=== PATIENT | female | born 1955 | race Caucasian/White ===

== ENCOUNTER 2018-11-06 11:36 | Observation (INO) | payer BC, OTHER ==
[~2018-11-06] VITALS: Ht 154.9 cm; Wt 42.8 kg
[2018-11-06] MEDS ORDERED: KETOROLAC 15 MG INJ IV STA (11:45)
--- NOTE | 2018-11-06 12:04 | ERD ---
ER Documentation Chief Complaint Chief Complaint HPI 63-year-old woman brought in by EMS from orthopedic clinic after experiencing sh ahmet left-sided chest pain radiating down to the left upper extremity while in the office. Patient also experienced shortness of breath and dizziness with the sharp chest pain and had paresthesias to the left hand. 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 She denies cough, no recent fevers or chills, no loss of consciousness, no headache or blurry vision. Patient was given aspirin and nitroglycerin at the scene and transported here without further complications ROS All systems reviewed and are negative except as per history of present illness. Medications Home Meds Reported Medications Estradiol (Estradiol) 1 Each Patch.tdwk, 1 PATCH TOP WEEKLY 11/06/18 Allergies Allergies: Coded Allergies: amoxicillin (Verified Adverse Reaction, Mild, RASH, 11/06/18) PMhx/Soc History of Surgery: Yes () Anesthesia Reaction: No Hx Neurological Disorder: No Hx Respiratory Disorders: No Hx Cardiac Disorders: No Hx Psychiatric Problems: No Hx Miscellaneous Medical Probl: No (NONE) Hx Alcohol Use: No Hx Substance Use: No Hx Tobacco Use: No Physical Exam Vitals Vital Signs Date Temp Pulse Resp B/P (MAP) Pulse Ox O2 O2 Flow FiO2 Time Delivery Rate 11/06/18 98.1 67 19 126/81 98 11:36 (96) Physical Exam GENERAL: Well-developed, well-nourished, well-hydrated, in no apparent distress, looks nontoxic in appearance NEURO: Alert and oriented 3, cranial nerves II through XII intact bilaterally, pupils equal round reactive to light, no focal deficits or facial asymmetry, sensation intact distally Strength 5/5 in upper and lower extremities bilaterally CARDIAC: Regular rate and rhythm, no murmurs rubs or gallops LUNGS: Clear bilaterally no wheezing crackles or stridor SKIN: Warm and dry to touch, no abrasions, contusions, or hematomas, no lacerations, no ecchymosis, no target lesions, and without ulcers EXTREMITIES: No clubbing cyanosis or edema, calves are bilaterally symmetrical, no Homans sign, no popliteal cord sign. Distal pulses equal and bilateral PSYCH: Normal affect without agitation or irritability Result Diagram: 11/06/18 1153 11/06/18 1153 Results 24 hrs Laboratory Tests Test 11/06/18 11:53 White Blood Count 7.6 10^3/ul Red Blood Count 4.27 10^6/ul Hemoglobin 13.6 g/dl Hematocrit 40.2 % Mean Corpuscular Volume 94.1 fl Mean Corpuscular Hemoglobin 31.9 pg Mean Corpuscular Hemoglobin Concent 33.8 g/dl Red Cell Distribution Width 11.9 % Platelet Count 288 10^3/UL Mean Platelet Volume 9.5 fl Immature Granulocytes % 0.300 % Neutrophils % 65.7 % Lymphocytes % 28.0 % Monocytes % 5.4 % Eosinophils % 0.1 % Basophils % 0.5 % Nucleated Red Blood Cells % 0.0 /100WBC Immature Granulocytes # 0.020 10^3/ul Neutrophils # 5.0 10^3/ul Lymphocytes # 2.1 10^3/ul Monocytes # 0.4 10^3/ul Eosinophils # 0.0 10^3/ul Basophils # 0.0 10^3/ul Nucleated Red Blood Cells # 0.0 10^3/ul Sodium Level 140 mmol/L Potassium Level 3.9 mmol/L Chloride Level 107 mmol/L Carbon Dioxide Level 21 mmol/L Anion Gap 12 Blood Urea Nitrogen 16 mg/dl Creatinine 0.68 mg/dl Est Glomerular Filtrat Rate mL/min > 60 mL/min Glucose Level 112 mg/dl Calcium Level 9.4 mg/dl Total Bilirubin 0.6 mg/dl Direct Bilirubin 0.00 mg/dl Indirect Bilirubin 0.6 mg/dl Aspartate Amino Transf (AST/SGOT) 28 IU/L Alanine Aminotransferase (ALT/SGPT) 22 IU/L Alkaline Phosphatase 38 IU/L Troponin I < 0.012 ng/ml B-Type Natriuretic Peptide 73 PG/ML Total Protein 7.9 g/dl Albumin 4.4 g/dl Globulin 3.50 g/dl Albumin/Globulin Ratio 1.25 Lipase 144 U/L Current Medications Medications Dose Sig/Ade Start Time Status Last (Trade) Ordered Route PRN Stop Time Admin Dose Reason Admin Ketorolac 15 mg ONCE STAT 11/06/18 DC 11/06/18 Tromethamine IV 11:45 12:11 (Toradol) 11/06/18 11:47 Procedures/MDM IV line was established patient was placed on equipment monitor phototypesetting rhythm strip revealed a sinus rhythm at about 70 bpm with upright P and T waves. Patient was afebrile EKG performed, read by me: 72 bpm, normal sinus rhythm, normal axis, no acute ST segment changes, narrow QRS complex, with good R-wave progression in precordial leads. Chest X-ray 1V Interpreted by me: Soft Tissue: No acute abnormalities Bones: No acute abnormalities Mediastinum/Cardiac Silhouette/Lungs: No acute abnormalities Patient was already treated with aspirin and nitroglycerin at the scene and did experience some improvement in chest pain. For continued discomfort I did administer Toradol 50 mg IV x1. CBC and electrolytes are normal, liver function tests were normal, troponin was negative, BNP was low Patient will be admitted to telemetry setting for continued medical management and cardiology consultation Departure Diagnosis: Primary Impression: Chest pain Chest pain type: unspecified Qualified Codes: R07.9 - Chest pain, unspecified Condition: MIRA Sawant MD Nov 06, 2018 12:04
[2018-11-06] MEDS ORDERED: ESTR1PAT76 TOP (12:23)
[2018-11-06 14:36] VITALS: BP 113/58; PULSE 62; RESP 18
[2018-11-06 15:12] VITALS: BP 120/75; PULSE 78; RESP 18
[2018-11-06 15:31] VITALS: Ht 154.9 cm; Wt 42.8 kg
[2018-11-06 20:30] VITALS: BP 115/55; PULSE 66; RESP 20
[2018-11-06] MEDS ORDERED: DIPHENHYDRAMINE 25 MG CAP PO PRN (21:00)
[2018-11-06] MEDS ORDERED: DEXTROSE 5%-0.9% NACL 1,000 ML IV SCH ×2 (21:00→22:36)
[2018-11-06] MEDS ORDERED: CYANOCOBALAMIN 1000 MCG INJ IM ONE (21:00)
[2018-11-06] MEDS ORDERED: NITROGLYCERIN (SL) 0.4 MG TAB SL PRN (21:00)
[2018-11-06] MEDS ORDERED: ALPRAZOLAM 0.25 MG TAB PO PRN (21:30)
--- NOTE | 2018-11-06 21:41 | HP ---
Date/Time of Note Date/Time of Note DATE: 11/06/18 TIME: 21:21 Assessment/Plan VTE Prophylaxis SCD applied (from Nsg): No SCD contraindicated: low risk/ambulating Pharmacological prophylaxis: NA/contraindicated Pharm contraindication: low risk/ambulating Lines/Catheters IV Catheter Type (from Nrsg): Saline [employer] Central line still needed: No Urinary Cath still in place: No Assessment/Plan Assessment/Plan 1. atypical angina? 2. Gerd spasm? 3. h/o hyperTG/ arrythemia/ past silent VA? 4. anemia 5. anxiety-depression/ wt loss 5. stress exhaustion--vasovaga ---observ admit to tele bed ---ivf ---vits b12, b6, d ---inh ---protonix bid ---serial ekg/ triponin/ cpk-mb/ bnp ---2d echo with doppler ---cards ref Result Diagram: 11/06/18 1153 11/06/18 1153 Results 24hrs Laboratory Tests Test 11/06/18 11:53 11/06/18 18:02 White Blood Count 7.6 Red Blood Count 4.27 Hemoglobin 13.6 Hematocrit 40.2 Mean Corpuscular Volume 94.1 Mean Corpuscular Hemoglobin 31.9 Mean Corpuscular Hemoglobin Concent 33.8 Red Cell Distribution Width 11.9 Platelet Count 288 Mean Platelet Volume 9.5 Immature Granulocytes % 0.300 Neutrophils % 65.7 Lymphocytes % 28.0 Monocytes % 5.4 Eosinophils % 0.1 Basophils % 0.5 Nucleated Red Blood Cells % 0.0 Immature Granulocytes # 0.020 Neutrophils # 5.0 Lymphocytes # 2.1 Monocytes # 0.4 Eosinophils # 0.0 Basophils # 0.0 Nucleated Red Blood Cells # 0.0 Sodium Level 140 Potassium Level 3.9 Chloride Level 107 Carbon Dioxide Level 21 Anion Gap 12 Blood Urea Nitrogen 16 Creatinine 0.68 Est Glomerular Filtrat Rate mL/min > 60 Glucose Level 112 Calcium Level 9.4 Total Bilirubin 0.6 Direct Bilirubin 0.00 Indirect Bilirubin 0.6 Aspartate Amino Transf (AST/SGOT) 28 Alanine Aminotransferase (ALT/SGPT) 22 Alkaline Phosphatase 38 L Troponin I < 0.012 < 0.012 B-Type Natriuretic Peptide 73 Total Protein 7.9 Albumin 4.4 Globulin 3.50 H Albumin/Globulin Ratio 1.25 Lipase 144 HPI/ROS Admit Date/Time Admit Date/Time Nov 06, 2018 at 13:00 Hx of Present Illness 63 yo viet[place] woman, was at a doctor's appnt today morning, sudden attack of left chest squeezing pain with radiating down the left arm, lasting for a secs, no loc, yes sob, no palpitation, slight sudden sweating, asked to come to [facility] er for check up ROS no f/c/n/v/dysuria/bm change. 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 awaiting for kidney transpant for a few months, Medications multi vit, inh, asa Coded Allergies: amoxicillin (Verified Adverse Reaction, Mild, RASH, 11/06/18) Past Surgical History colonoscopy, ugi endoscopy Family History Significant Family History: heart disease, hypertension Social History Alcohol Use: rarely Smoking Status: Never smoker Drug Use: none Exam/Review of Systems Vital Signs Vitals Vital Signs Date Temp Pulse Resp B/P (MAP) Pulse Ox O2 O2 Flow FiO2 Time Delivery Rate 11/06/18 97.5 66 20 115/55 98 Room Air 20:30 (75) Exam Exam a&o x4, perrla, eomi, nl ears/ nose/ throat, slight bronch wheez+, rr syst m+, abd--slight tender epigastic region, no mass, nd, c/o slight tender palp on low LS spine musc spasm/ tense+, cn 2-12, sensory, motor strength grossly intact, pulses +1 LUIS MIGUEL Hou MD Nov 06, 2018 21:31
[2018-11-06] MEDS: TIOTROPIUM 18 MCG CAPSULE INHA DEV INH SCH (22:22)
[2018-11-07 00:21] VITALS: BP 104/52; PULSE 58; RESP 18
[2018-11-07 04:30] VITALS: BP 101/53; PULSE 70; RESP 20
[2018-11-07] MEDS: PANTOPRAZOLE (EC) 40 MG TAB PO SCH ×2 (05:09→17:56)
[2018-11-07 07:08] VITALS: BP 101/58; PULSE 57; RESP 18
[2018-11-07] MEDS: ALBUTEROL HFA 8 GM INHALER INH SCH ×2 (08:36→14:10)
[2018-11-07] MEDS ORDERED: CHOLECALCIFEROL 2,000 UNIT CAP PO SCH (09:00)
[2018-11-07] MEDS ORDERED: MULTIVITAMINS/IRON (PO SYG) PO SCH (09:00)
[2018-11-07] MEDS ORDERED: FOLIC ACID 1 MG TAB PO SCH (09:00)
[2018-11-07] MEDS: TIOTROPIUM 18 MCG CAPSULE INHA DEV INH SCH (09:20)
[2018-11-07 11:00] VITALS: BP 110/59; PULSE 80; RESP 18
[2018-11-07 15:05] VITALS: BP 106/51; PULSE 64; RESP 18
--- NOTE | 2018-11-07 15:23 | CONS ---
Assessment/Plan Assessment/Plan Hospital Course (Demo Recall) 1. chest pain; appears atypical with negative work up including normal florecita angio 2017 Myocardial infarction has been ruled out with serial cardiac enzyme Resume aspirin daily Risk factor modification Echo has been ordered. Awaiting to be done so I can review it Okay for discharge from cardiac standpoint if normal LV function is seen on the echo. Consider outpatient stress test if recurrent pain 2. History of asthma coronary controlled 3. History of dyslipidemia on niacin at home Consider switching to statins if needed 4. History of anxiety currently stable Thank you for his referral. We will continue to follow along with you until Dr. Yeh returns on Friday TOM JUAREZ MD [facility] Consultation Date/Type/Reason Admit Date/Time Nov 06, 2018 at 13:00 Date of Consultation: Nov 07, 2018 Type of Consult Cardiology Reason for Consultation cp Requesting Provider: LUIS MIGUEL AGOSTO MD Date/Time of Note DATE: 11/07/18 TIME: 15:14 Hx of Present Illness Interventional cardiology consultation note Chief complaint: chest pain Reason for consult: chest pain History of present illness: Thank you for this referral. This is a pleasant 53-year-old [place] female with history of anxiety and mild asthma who came to the emergency above complaint. Patient was apparently in her doctor's office yesterday. When she was waiting she complained of chest tightness and pressure. Lasted about 10 minutes. She was referred to the emergency room has been admitted. So far she does not have any more chest pain has been ruled out for myocardial infarction. Patient says she is normally able to walk. She gets short of breath when she walks though. Patient reports to me that 2 years ago she was at [facility] for the same reason. She had a stress test done and it was short of breath and because of that she underwent diagnostic angiography. Per patient report angiography was normal no stent was needed and she has been treated medically since then. Allergies: Amoxicillin Medications were reviewed as per medical reconciliation sheet. She says she takes aspirin and niacin daily Family history: No history of early coronary artery disease Social history: nonsmoker Past medical history: asthma dyslipidemia asthma Review of system: Patient denies all others except for above-mentioned Past Medical History Home Meds Reported Medications Estradiol (Estradiol) 1 Each Patch.tdwk, 1 PATCH TOP WEEKLY [place] 7/26/19 Medications Current Medications Dextrose/Sodium Chloride 1,872 ml @ 80 mls/hr [id number] IV Last administered on 11/06/18at 22:45; Admin Dose 80 MLS/HR; Start 11/06/18 at 22:36; Stop 11/07/18 at 22:00 Diphenhydramine HCl (Benadryl) 25 mg HS PRN PO insomnia; Start 11/06/18 at 21:00 Pantoprazole (Protonix Tab) 40 mg BID@06,18 PO Last administered on 11/07/18at 05:09; Admin Dose 40 MG; Start 11/07/18 at 06:00 Albuterol (Ventolin Hfa) 2 puff Q6HWA RESP THERAPY INH Last administered on 11/07/18 14:10; Admin Dose 2 PUFF; Start 11/07/18 at 08:00 Tiotropium Tyler (Spiriva) 1 inh DAILY INH Last administered on 11/07/18 09:20; Admin Dose 1 INH; Start 11/06/18 at 21:00 Folic Acid (Folic Acid) 1 mg DAILY PO Last administered on 11/07/18at 08:36; Admin Dose 1 MG; Start 11/07/18 at 09:00 Cholecalciferol (Vitamin D) 2,000 unit DAILY PO Last administered on 11/07/18at 08:37; Admin Dose 2,000 UNIT; Start 11/07/18 at 09:00 Multivitamins/Iron (Poly-Vi-Cesia w/ Iron (Nicu)) 1 ml DAILY PO Last administered on 11/07/18 08:36; Admin Dose 1 ML; Start 11/07/18 at 09:00 Nitroglycerin (Nitroglycerin (Sl Tab) 0.4 Mg) 1 tab Q5M PRN SL ANGINA; Start 11/06/18 at 21:00 Alprazolam (Xanax) 0.25 mg Q8 PRN PO anxiety; Start 11/06/18 at 21:30 Allergies: Coded Allergies: amoxicillin (Verified Adverse Reaction, Mild, RASH, 11/06/18) Social History Alcohol Use: rarely Smoking Status: Never smoker Drug Use: none Exam/Review of Systems Vital Signs Vitals Vital Signs Date Temp Pulse Resp B/P (MAP) Pulse Ox O2 O2 Flow FiO2 Time Delivery Rate 11/07/18 98.0 64 18 106/51 96 15:05 (69) 11/07/18 Room Air 04:30 Intake and Output 11/06/18 11/06/18 11/07/18 1515:00 23:00 07:00 IntakeIntake Total 350 ml 500 ml BalanceBalance 350 ml 500 ml Exam Exam General: no acute distress HEENT: NC/AT. pupils are equal. round. NECK: NO JVD. no stridor. CV: RRR. systolic murmur; no gallop or rubs. PULM: no wheezing or rhonchi. GI: SOFT, NT, ND, no rebound or guarding Extremity: trace B/L LE edema. no clubbing. neuro: awake and alert, OX3. Psych: calm and pleasant rectal: deferred ECG NSR normal Labs Result Diagram: 11/07/1845511/07/186 Results 24hrs Laboratory Tests Test 11/06/18 18:02 11/06/18 23:13 11/07/18 04:56 Troponin I < 0.012 < 0.012 < 0.012 White Blood Count 5.4 # Red Blood Count 3.80 L Hemoglobin 12.2 Hematocrit 36.6 L Mean Corpuscular Volume 96.3 Mean Corpuscular Hemoglobin 32.1 Mean Corpuscular Hemoglobin Concent 33.3 Red Cell Distribution Width 11.9 Platelet Count 252 Mean Platelet Volume 9.5 Immature Granulocytes % 0.200 Neutrophils % 61.2 Lymphocytes % 30.4 Monocytes % 6.7 Eosinophils % 0.9 Basophils % 0.6 Nucleated Red Blood Cells % 0.0 Immature Granulocytes # 0.010 Neutrophils # 3.3 Lymphocytes # 1.6 Monocytes # 0.4 Eosinophils # 0.1 Basophils # 0.0 Nucleated Red Blood Cells # 0.0 Sodium Level 142 Potassium Level 3.9 Chloride Level 113 H Carbon Dioxide Level 25 Anion Gap 4 #L Blood Urea Nitrogen 14 Creatinine 0.61 Est Glomerular Filtrat Rate mL/min > 60 Glucose Level 92 Calcium Level 7.7 L Magnesium Level 2.0 Creatine Kinase 58 Creatine Kinase Index 1.0 Creatinine Kinase MB (Mass) 0.60 B-Type Natriuretic Peptide 111 Cholesterol Level 162 Thyroid Stimulating Hormone (TSH) 2.130 Free Thyroxine 0.95 Medications Medications Current Medications Dextrose/Sodium Chloride 1,872 ml @ 80 mls/hr [id number] IV Last administered on 11/06/18 22:45; Admin Dose 80 MLS/HR; Start 11/06/18 at 22:36; Stop 11/07/18 at 22:00 Diphenhydramine HCl (Benadryl) 25 mg HS PRN PO insomnia; Start 11/06/18 at 21:00 Pantoprazole (Protonix Tab) 40 mg BID@06,18 PO Last administered on 11/07/18 05:09; Admin Dose 40 MG; Start 11/07/18 at 06:00 Albuterol (Ventolin Hfa) 2 puff Q6HWA RESP THERAPY INH Last administered on 11/07/18 14:10; Admin Dose 2 PUFF; Start 11/07/18 at 08:00 Tiotropium Tyler (Spiriva) 1 inh DAILY INH Last administered on 11/07/18 09:20; Admin Dose 1 INH; Start 11/06/18 at 21:00 Folic Acid (Folic Acid) 1 mg DAILY PO Last administered on 11/07/18 08:36; Admin Dose 1 MG; Start 11/07/18 at 09:00 Cholecalciferol (Vitamin D) 2,000 unit DAILY PO Last administered on 11/07/18 08:37; Admin Dose 2,000 UNIT; Start 11/07/18 at 09:00 Multivitamins/Iron (Poly-Vi-Cesia w/ Iron (Nicu)) 1 ml DAILY PO Last administered on 11/07/18 08:36; Admin Dose 1 ML; Start 11/07/18 at 09:00 Nitroglycerin (Nitroglycerin (Sl Tab) 0.4 Mg) 1 tab Q5M PRN SL ANGINA; Start 11/06/18 at 21:00 Alprazolam (Xanax) 0.25 mg Q8 PRN PO anxiety; Start 11/06/18 at 21:30 TOM JUAREZ MD Nov 07, 2018 15:23
[2018-11-07] MEDS ORDERED: ASPIRIN (EC) 81 MG TAB PO SCH (15:30)
--- NOTE | 2018-11-07 16:45 | RADRPT ---
Echocardiogram Report Patient Name: GERSON PENAPatient ID: [id number] : 1955 (63y 6m)Study Date: 11/07/2018 3:41:32 PM Gender: FAccession #: [id number] Tech: [facility] Location: [facility] Ref.Physician: GREGORIO HANNON Height(Cm): 155 BSA: 1.35Weight(Kg): 42.6 Quality: AdequateOrder Physician: GREGORIO HANNON Account #: Procedures: Echocardiographic Report: Transthoracic echocardiogram examination. Indications: Chest Pain. Measurements: 2D/M Mode Doppler Measurement Value Normal Range Measurement Value Normal Range LVIDd 2D 4.4 [ 3.8 - 5.2 ] cm AV Peak Usman 1.1 [ 100.0 - 170.0 ] cm/se c LVIDs 2D 2.5 [ 2.2 - 3.5 ] cm AV Peak PG 5.0 [ 2.0 - 9.0 ] mmHg LVPWd 2D 0.7 [ 0.6 - 0.9 ] cm LVOT Peak Usman 0.9 [ 70.0 - 110.0 ] cm/sec IVSd 2D 0.7 [ 0.6 - 0.9 ] cm LVOT Peak PG 3.0 [ 2.0 - 6.0 ] mmHg AoR Diam 2D 3.0 [ 2.3 - 3.1 ] cm MV E Peak Usman 0.6 [ 60.0 - 130.0 ] cm/sec EDV 2D 86.3 [ 46.0 - 106.0 ] ml MV A Peak Usman 0.6 [ 100.0 - 120.0 ] cm/se c ESV 2D 22.5 [ 14.0 - 42.0 ] ml MV E/A 1.1 [ 0.8 - 1.5 ] ratio EF 2D 73.9 [ 54.0 - 74.0 ] percent MV PHT 95.0 [ 20.0 - 100.0 ] msec LA Dimen 2D 2.5 [ 2.7 - 3.8 ] cm MV Decel Time 324 [ 104 - 258 ] msec MV Decel Coamo 2 Lat E` Usman 0.1 [ 10.0 - 15.0 ] cm/sec Lateral E/E` 5.6 [ 1.0 - 2.0 ] ratio Med E` Usman 0.1 cm/sec MV E/A 1.1 [ 0.8 - 1.5 ] ratio MV PHT 95.0 [ 20.0 - 100.0 ] msec MVA PHT 2.3 [ 2.0 - 4.0 ] cm2 TR Peak Usman 2.1 [ 100.0 - 280.0 ] cm/se c TR Peak PG 18.0 mmHg PV Peak Usman 0.8 [ 40.0 - 80.0 ] cm/sec PV Peak PG 2.0 mmHg RVSP 28.0 [ 10.0 - 36.0 ] mmHg RA Pressure 10.0 mmHg Findings: Left Ventricle: Normal left ventricular cavity size, wall thickness and systolic function. Normal left ventricular diastolic function for age as measured by tissue Doppler/Mitral Doppler indices. The left ventricular ejection fraction is visually estimated at 55 %. Right Ventricle: Normal right ventricular size. Normal right ventricular systolic function. Left Atrium: The left atrium is normal in size and appearance. Right Atrium: The right atrium is normal in size and appearance. Atrial Septum: Normal atrial septum. Mitral Valve: Normal appearance of the mitral valve leaflets. Mild mitral regurgitation. Aortic Valve: Normal appearance and function of the aortic valve. Trace to mild aortic regurgitation. Tricuspid Valve: Normal appearance and function of the tricuspid valve with trace physiologic regurgitation. The estimated Peak PA Systolic Pressure is 28 mmHg. Pulmonic Valve: Normal pulmonic valve appearance and function with trivial (physiologic) regurgitation. There is trace pulmonic regurgitation. Pericardium: Normal pericardium with no significant pericardial effusion. Aorta: Normal aortic root. IVC: Normal inferior vena cava appearance. Pulmonary Artery: Normal pulmonary artery size. Conclusions: Normal appearance and function of the aortic valve. Trace to mild aortic regurgitation. Normal appearance and function of the tricuspid valve with trace physiologic regurgitation. The estimated Peak PA Systolic Pressure is 28 mmHg. Normal pulmonic valve appearance and function with trivial (physiologic) regurgitation. There is trace pulmonic regurgitation. Normal left ventricular cavity size, wall thickness and systolic function. Normal left ventricular diastolic function for age as measured by tissue Doppler/Mitral Doppler indices. The left ventricular ejection fraction is visually estimated at 55 %. Electronically Signed By: Gregorio Hannon 2018-11-07 16:43:57 PDT
[2018-11-07] MEDS ORDERED: ESCI5TAB10 PO (18:26)
--- NOTE | 2018-11-07 18:44 | DS ---
Date/Time of Note Date/Time of Note DATE: 11/07/18 TIME: 18:27 Discharge Summary Admission/Discharge Info Admit Date/Time Nov 06, 2018 at 13:00 Discharge Date/Time Nov 07, 2018 at 18:28 Discharge Diagnosis Atypical chest pain Acute stress reaction Patient Condition: Good Consults Cardiology Procedures 2D echo left arm venous doppler Hx of Present Illness 63 yo sinhala woman who was at a doctor's appt yesterday morning when she developed sudden onset of left chest squeezing pain with radiation down the left arm, lasting for a secs, no loc, yes sob, no palpitation, slight sudden sweating. Patient was sent to [facility] er for check up where her EKG was normal and chest xray was normal. She did have history of similar chest pain in the past and had underwent angiogram before. Patient was admitted to rule out AR and for cardiology evaluation. Hospital Course Patient's serial troponins were normal , she was seen by Periodicals Clerk Dr. Hannon who was covering for Dr Sims . She had Echo and left arm venous doppler done which were also normal. Patient was cleared for discharge from cardiac point of view. 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 Treatments for acute stress discussed with patient and she agreed to try a low dose of lexapro. Home Meds Active Scripts Escitalopram Oxalate* (Escitalopram Oxalate*) 5 Mg Tablet, 5 MG PO DAILY, #30 TAB Prov:STELLA RUBIN MD 11/07/18 Reported Medications Estradiol (Estradiol) 1 Each Patch.tdwk, 1 PATCH TOP WEEKLY 11/06/18 Follow-up Plan follow up with PCP in 1 week. follow up with cardiology in 2 weeks for possible outpatient ETT. Primary Care Provider Monika Phelps MD Time spent on discharge: > 30 minutes Pending Labs Laboratory Tests Test 11/06/18 23:13 11/07/18 04:56 Troponin I < 0.012 < 0.012 ng/ml (0.000-0.120) ng/ml (0.000-0.120) White Blood Count 5.4 10^3/ul (4.8-10.8) Red Blood Count 3.80 10^6/ul (4.20-5.40) Hemoglobin 12.2 g/dl (12.0-16.0) Hematocrit 36.6 % (37.0-47.0) Mean Corpuscular Volume 96.3 fl (82.0-101.0) Mean Corpuscular 32.1 pg (29.0-33.0) Hemoglobin Mean Corpuscular 33.3 g/dl (32.0-37.0) Hemoglobin Concent Red Cell Distribution 11.9 % (11.5-14.5) Width Platelet Count 252 10^3/UL (140-415) Mean Platelet Volume 9.5 fl (7.4-10.4) Immature Granulocytes % 0.200 % (0.001-0.429) Neutrophils % 61.2 % (39.0-77.0) Lymphocytes % 30.4 % (15.0-51.0) Monocytes % 6.7 % (0.0-11.0) Eosinophils % 0.9 % (0.0-7.0) Basophils % 0.6 % (0.0-2.0) Nucleated Red Blood Cells 0.0 /100WBC (0.0-0.0) % Immature Granulocytes # 0.010 10^3/ul (0.0-0.031) Neutrophils # 3.3 10^3/ul (1.6-7.5) Lymphocytes # 1.6 10^3/ul (0.8-2.9) Monocytes # 0.4 10^3/ul (0.3-0.9) Eosinophils # 0.1 10^3/ul (0.0-0.5) Basophils # 0.0 10^3/ul (0.0-0.1) Nucleated Red Blood Cells 0.0 10^3/ul (0.0-0.0) # Sodium Level 142 mmol/L (135-144) Potassium Level 3.9 mmol/L (3.5-5.1) Chloride Level 113 mmol/L (97-110) Carbon Dioxide Level 25 mmol/L (21-31) Anion Gap 4 (5-13) Blood Urea Nitrogen 14 mg/dl (7-20) Creatinine 0.61 mg/dl (0.44-1.00) Est Glomerular Filtrat > 60 mL/min (>60) Rate mL/min Glucose Level 92 mg/dl (70-220) Calcium Level 7.7 mg/dl (8.4-10.2) Magnesium Level 2.0 mg/dl (1.7-2.5) Creatine Kinase 58 IU/L (23-200) Creatine Kinase Index 1.0 Creatinine Kinase MB 0.60 ng/ml (0.0-2.4) (Mass) B-Type Natriuretic 111 PG/ML (0-125) Peptide Cholesterol Level 162 mg/dl (100-200) Thyroid Stimulating 2.130 MIU/L (0.465-4.680) Hormone (TSH) Free Thyroxine 0.95 ng/dl (0.78-2.44) STELLA RUBIN MD Nov 07, 2018 18:38
[2018-11-07 20:05] VITALS: BP 108/58; PULSE 72; RESP 20
--- NOTE | 2018-11-09 09:09 | RADRPT ---
Vent Rate: 73 bpm RR Interval: 828 msec MI Interval: 143 msec QRS Duration: 80 msec QT Interval: 429 msec QTC Interval: 471 msec P-R-T [place]: 75 - 18 - 67 degrees Sinus rhythm...normal P axis, V-rate 50- 99 Electronically Signed By: Mundo David
== END 2018-11-07 20:14 | disposition home or self-care (01) ==
LOC: E/R 11:36 → 6WM 13:00
PROVIDERS: ADMIT Internal Medicine; ATTEND Internal Medicine
DX: R07.89 Other chest pain (principal); E78.5 Hyperlipidemia, unspecified; F41.9 Anxiety disorder, unspecified; J45.909 Unspecified asthma, uncomplicated
CPT/HCPCS: 36415; 71045; 80048; 80053; 82465; 82550; 82553; 83690; 83735; 83880; 84439; 84443; 84484; 85025; 86038; 93005; 93306; 93931; 96374; 99285; G0378; J1885; J3420; J7042